=== PATIENT | male | born 1990 | race Two or more races ===

== ENCOUNTER 2018-12-15 02:13 | Observation (INO) | payer OTHER ==
[2018-12-15] VITALS (8 sets, daily range): BP systolic 110–131; BP diastolic 58–78
[~2018-12-15] VITALS: Ht 177.8 cm; Wt 83.2 kg
[2018-12-15] MEDS ORDERED: ONDANSETRON HCL INJ 2MG/ML 2ML 2 MG/ML VIAL IV STA (02:39)
[2018-12-15] MEDS ORDERED: SODIUM CHLORIDE 0.9% 1000ML 1,000 ML IV SCH (02:45)
[2018-12-15] MEDS ORDERED: IOPAMIDOL 370 MG/ML 50ML INFUS..BTL INJ ONE (03:30)
--- NOTE | 2018-12-15 03:54 | Diagnostic Imaging Report ---
EXAM: CT Abdomen and Pelvis WITH contrast INDICATION: Epigastric/periumbilical pain COMPARISON: None. TECHNIQUE: Abdomen and pelvis were scanned utilizing a multidetector helical scanner from the lung base to the pubic symphysis after administration of IV contrast. Coronal and sagittal reformations were obtained. Routine protocol was performed. Scan was performed when during portal venous phase. IV CONTRAST: 100 mL of Isovue-370 ORAL CONTRAST: Water COMPLICATIONS: None RADIATION DOSE: Total DLP: 595.8 mGy*cm Estimated effective dose: (DLP x 0.015 x size factor) mSv Dose modulation, iterative reconstruction, and/or weight based adjustment of the mA/kV was utilized to reduce the radiation dose to as low as reasonably achievable. FINDINGS: LINES and TUBES: None. LOWER THORAX: Unremarkable HEPATOBILIARY: No focal hepatic lesions. No biliary ductal dilation. GALLBLADDER: No radio-opaque stones or sludge. No wall thickening. SPLEEN: No splenomegaly. PANCREAS: No focal masses or ductal dilatation. ADRENALS: No adrenal nodules KIDNEYS/URETERS: Kidneys enhance symmetrically. No hydronephrosis. No cystic or solid mass lesions. No stones. GI TRACT: No abnormal distention or evidence of bowel obstruction. Appendix is fluid-filled and dilated to 1.1 cm in diameter with periappendiceal stranding and fluid. No abscess. PELVIC ORGANS/BLADDER: Unremarkable. LYMPH NODES: No lymphadenopathy. VESSELS: Unremarkable. PERITONEUM / RETROPERITONEUM: Small amount of free fluid in the right lower quadrant and pelvis. No free air. BONES: Unremarkable. SOFT TISSUES: Unremarkable. IMPRESSION: Acute uncomplicated appendicitis. Findings discussed with Arturo Renteria RN on 12/15/2018 at 0345 hrs. Signed by: DR. Dale Cantor MD on 12/15/2018 3:51 AM
[2018-12-15] MEDS ORDERED: PIPER-TAZ 3.375 GM 50 ML IV ONE (04:00)
[2018-12-15] MEDS ORDERED: ONDANSETRON HCL INJ 2MG/ML 2ML 2 MG/ML VIAL IV PRN ×2 (04:15→14:30)
--- OUTSIDE RECORDS SUMMARY | 2018-12-15 05:57 | XMS REPORT ---
Author Author [facility] Address Unknown Phone Unavailable Care Team Providers Care [employer] Officer Name Role Phone Supa AYALA Unavailable Unavailable Problems This patient has no known problems. Allergies, Adverse Reactions, Alerts This patient has no known allergies or adverse reactions. Medications This patient has no known medications. Results Test Description Test Time Test Comments Text Results Atomic Results Result Comments CT ABD/PEL WITH CONTRAST-HOPD 2018-12-15 03:35:00 [place] [id number] Patient Name: ZOILA REEDER MR #: [id number] : 1990 Age/Sex: 28/M Req #: [id number] Adm Physician: Ordered by: MONIKA AYALA MD Report #: [id number] Location: [facility] Room/Bed: Procedure: [id number] HOPD/CT ABD/PEL WITH CONTRAST-HOPD Exam Date: 12/15/18 Exam Time: 0315 REPORT STATUS: Signed EXAM: CT Abdomen and Pelvis WITH contrast INDICATION: Epigastric/periumbilical pain COMPARISON: None. TECHNIQUE: Abdomen and pelvis were scanned utilizing a multidetector helical scanner from the lung base to the pubic symphysis after administration of IV contrast. Coronal and sagittal reformations were obtained. Routine protocol was performed. Scan was performed when during portal venous phase. IV CONTRAST: 100 mL of Isovue-370 ORAL CONTRAST: Water COMPLICATIONS: None RADIATION DOSE: Total DLP: 595.8 mGy*cm Estimated effective dose: (DLP x 0.015 x size factor) mSv Dose modulation, iterative reconstruction, and/or weight based adjustment of the mA/kV was utilized to reduce the radiation dose to as low as reasonably achievable. FINDINGS: LINES and TUBES: None. LOWER THORAX: Unremarkable HEPATOBILIARY: No focal hepatic lesions. No biliary ductal dilation. GALLBLADDER: No radio-opaque stones or sludge. No wall thickening. SPLEEN: No splenomegaly. PANCREAS: No focal masses or ductal dilatation. ADRENALS: No adrenal nodules KIDNEYS/URETERS: Kidneys enhance symmetrically. No hydronephrosis. No cystic or solid mass lesions. No stones. GI TRACT: No abnormal distention or evidence of bowel obstruction. Appendix is fluid-filled and dilated to 1.1 cm in diameter with periappendiceal stranding and fluid. No abscess. PELVIC ORGANS/BLADDER: Unremarkable. LYMPH NODES: No lymphadenopathy. VESSELS: Unremarkable. PERITONEUM / RETROPERITONEUM: Small amount of free fluid in the right lower quadrant and pelvis. No free air. BONES: Unremarkable. SOFT TISSUES: Unremarkable. IMPRESSION: Acute uncomplicated appendicitis. Findings discussed with Arturo Renteria RN on 12/15/2018 at 0345 hrs. Signed by: DR. Dale Alcantar MD on 12/15/2018 3:51 AM Dictated By: DALE ALCANTAR MD 0 Transcribed By: LISA on 12/15/18350 COPY TO: MONIKA AYALA MD
[2018-12-15] MEDS ORDERED: SODIUM CHLORIDE 0.9% 1000ML 1,000 ML IV ONE (06:30)
--- NOTE | 2018-12-15 07:50 | NUR ---
recvd patient, primary language is Irish, states he understands Armenian well. pt aware of dx and possible surgery. currently having shower with cleanse. vs stable, will continue to monitor.
[2018-12-15 09:14] LABS: BASOPHILS % 0.3 % (0.0-1.0); EOSINOPHILS % 0.3 % (0.0-6.0); HEMATOCRIT 45.1 % (38.2-49.6); HEMOGLOBIN 15.7 g/dL (14.0-18.0); LYMPHOCYTES # (AUTO) 1.4 (1.0-3.2); LYMPHOCYTES % 16.1 % (18.0-39.1); MEAN CORPUSCULAR HGB CONC 34.8 g/dL (31-35); MEAN CORPUSCULAR VOLUME 83.2 fL (81-99); MONOCYTES # (AUTO) 0.9 (0.2-0.8); MONOCYTES % 9.8 % (4.4-11.3); NEUTROPHILS # (AUTO) 6.5 (2.1-6.9); NEUTROPHILS % 73.2 % (38.7-80.0); PLATELET COUNT 212 x10e3/uL (140-360); RED BLOOD COUNT 5.42 x10e6/uL (4.3-5.7)
[2018-12-15 09:34] LABS: ANION GAP 12.3 mmol/L (8-16); BLOOD UREA NITROGEN 11 mg/dL (7-26); BUN/CREATININE RATIO 10 (6-25); CALCIUM 9.2 mg/dL (8.4-10.2); CARBON DIOXIDE 26 mmol/L (22-29); CHLORIDE 104 mmol/L (98-107); CREATININE, SERUM 1.15 mg/dL (0.72-1.25); EST GLOMERULAR FILTRATION RATE > 60 ML/MIN (60-); GLUCOSE 95 mg/dL (74-118); MAGNESIUM 2.3 MG/DL (1.3-2.1); POTASSIUM 4.3 mmol/L (3.5-5.1); SODIUM 138 mmol/L (136-145)
[2018-12-15] MEDS: D5.45%NS/KCL 20MEQ 1,000 ML IV SCH ×2 (10:07→12:05)
[2018-12-15] MEDS ORDERED: PIPER-TAZ 3.375 GM / NS 50ML IV SCH (12:00)
--- NOTE | 2018-12-15 12:01 | NUR ---
per OR, dr lindo scheduling procedure for this afternoon.
--- NOTE | 2018-12-15 13:18 | NUR ---
PT IN STABLE CONDITION, LEFT FOR PROCEDURE
--- NOTE | 2018-12-15 13:34 | Consultation ---
DATE OF CONSULTATION: December 15, 2018 REFERRING PHYSICIAN: Dr. Pito Yap. The patient is a 28-year-old male who presents with complaints of abdominal pain, which started yesterday. The pain persisted unchanged. He was evaluated with CT abdomen and pelvis in a freestanding emergency room which revealed findings suggestive of acute appendicitis. Patient says the pain has persisted unchanged. PAST MEDICAL HISTORY: Unremarkable. He has no chronic medical problems. No previous surgery. CURRENT MEDICATIONS: None. ALLERGIES: NO KNOWN ALLERGIES. FAMILY HISTORY: Noncontributory. 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 He does not smoke cigarettes or drink alcohol. REVIEW OF SYSTEMS: As stated above, otherwise was negative. PHYSICAL EXAMINATION GENERAL: The patient is awake, alert, in no distress. VITAL SIGNS: Normal. HEENT: No scleral icterus. NECK: Supple. No masses. LUNGS: Equal breath sounds are clear bilaterally. CARDIAC: Regular rate and rhythm. No murmur. ABDOMEN: Tender in the right lower quadrant with localized signs of peritonitis in the right lower quadrant. There is no mass. EXTREMITIES: No edema. Pulses are palpable. NEUROLOGIC: Exam is intact. ASSESSMENT: This is a 28-year-old male with acute appendicitis. He will benefit from appendectomy, which I plan to schedule for today. Procedure was explained to the patient including risks, benefits and alternatives. He understands. He has had the opportunity to ask questions. He is aware of the possible need for open surgery. Thank you for asking see to see Mr. Ray. Job#: [id number]
[2018-12-15] MEDS ORDERED: BUPIVACAINE 0.5%/EPI 30 ML SDV INJ ONE (13:40)
--- NOTE | 2018-12-15 13:44 | NUR ---
SOCIAL WORK INITIAL ASSESSMENT Transmission Repairer to bedside to discuss plan of care with patient/family. CM/SW role and care transitions discussed. Anticipated discharge plan discussed along with duration of care. CM/SW discussed patients right to make decisions in care. CM/SW work hours given. 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 Name and number was also written on the patients whiteboard. Patient verbalized understanding of discussion. CM will follow-up with ongoing discharge and transition of care needs.
--- NOTE | 2018-12-15 13:47 | NUR ---
POST DISCHARGE STATUS FORM FILED IN CHART TO RETURN HOME WITH NO NEEDS
[2018-12-15] MEDS ORDERED: HYDROMORPHONE 1MG/1ML INJ IV PRN (14:30)
[2018-12-15] MEDS ORDERED: HYDROMORPHONE 2MG/ML 2 MG/ML ML IV PRN (14:30)
[2018-12-15] MEDS ORDERED: MEPERIDINE HCL INJ 25 MG/ML VIAL ONE (14:45)
--- NOTE | 2018-12-15 14:55 | Operative Report ---
DATE OF PROCEDURE: December 15, 2018 PREOPERATIVE DIAGNOSIS: Acute appendicitis. POSTOPERATIVE DIAGNOSIS: Acute appendicitis. PROCEDURES PERFORMED 1. Diagnostic laparoscopy. 2. Laparoscopic appendectomy. GOLD ASSAYER: None. ANESTHESIA: General. INDICATIONS AND FINDINGS: Patient is a 28-year-old male who presented with complaint of abdominal pain for 1 day localized to the right lower quadrant. At surgery, the patient was found to have an acutely inflamed appendix. TECHNIQUE: After adequate general endotracheal anesthesia, with the patient in the supine position, the abdomen was prepped and draped in a sterile fashion with ChloraPrep solution. Skin in the umbilicus was infiltrated with 0.5% Marcaine. Incision was made in the umbilicus. Abdominal wall was elevated, and a Veress needle was introduced. Pneumoperitoneum was then created. A 10-mm trocar and cannula were then passed through the umbilical wound. Laparoscopic camera was introduced. Initial laparoscopy revealed an acutely inflamed appendix. A 12-mm trocar and cannula were placed suprapubically, and a 5-mm trocar and cannula were placed in the right upper quadrant. These were placed under direct vision. Cecum was elevated. A window was created between the base of the appendix and the mesoappendix. The base of the appendix was divided close to the cecum with the Endo BERT stapler. Mesoappendix was also divided with Endo BERT stapler, freeing the appendix completely. A small amount of bleeding from the mesoappendix was controlled with a Hemoclip and hemostasis achieved. Appendix was placed into an Endo pouch and brought out through the suprapubic cannula. Care was taken that it did not touch the abdominal wall. The area of the appendectomy was inspected for hemostasis, which was seen to be adequate. It was irrigated with saline. All fluid aspirated and inspected for hemostasis, which was seen to be adequate. It was irrigated once again with saline. All fluid aspirated and inspected once again for hemostasis, which was seen to be adequate. Instruments and cannulas were removed. Pneumoperitoneum was evacuated. Wounds were then closed. Fascia in the umbilical and suprapubic wounds closed with #0 Vicryl. Skin to all wounds closed with anne-marie. Sterile dressings applied to each wound. Patient tolerated the procedure well. Estimated blood loss was 10 mL. There were no complications. All counts were correct. Patient was taken to the recovery room in satisfactory condition. Job#: [id number] MH
[2018-12-15] MEDS: DEXTROSE 5%/0.45% SOD CHL 1,000 ML IV SCH (15:41)
[2018-12-15] MEDS ORDERED: FENTANYL CITRATE/PF 100MCG/2 ML INJ ONE (17:51)
[2018-12-15] MEDS ORDERED: MIDAZOLAM HCL 2 MG/2 ML VIAL ONE (17:51)
[2018-12-15] MEDS ORDERED: NEOSTIGMINE 5 MG/5ML SYR ONE (18:02)
[2018-12-15] MEDS ORDERED: SEVOFLURANE INHAL SOLN 250 ML PEN BTL ONE (18:02)
[2018-12-15] MEDS ORDERED: ROCURONIUM BROMIDE 10 MG/ML 5ML VIAL ONE (18:02)
[2018-12-15] MEDS ORDERED: GLYCOPYRROLATE INJ 1MG/ 5 ML SYR ONE (18:02)
[2018-12-15] MEDS ORDERED: PROPOFOL IV EMULSION 10 MG/ML 20 ML VIAL ONE (18:02)
[2018-12-15] MEDS ORDERED: ONDANSETRON HCL INJ 2MG/ML 2ML 2 MG/ML VIAL ONE (18:02)
[2018-12-15] MEDS ORDERED: LIDOCAINE HCL 2% LOCAL INJ 5 ML SDV VIAL INJ ONE (18:02)
[2018-12-15] MEDS ORDERED: DEXAMETHASONE SOD PHOS INJ 4 MG/ML VIAL ONE (18:02)
[2018-12-15] MEDS ORDERED: KETOROLAC TROMETHAMINE 30 MG/ML VIAL ONE (18:02)
[2018-12-15] MEDS: PIPER-TAZ 3.375 GM 50 ML IV SCH (20:25)
[2018-12-16] MEDS: DEXTROSE 5%/0.45% SOD CHL 1,000 ML IV SCH ×2 (00:36→12:04)
[2018-12-16] MEDS: HYDROCODONE/APAP 5MG-325MG TAB PO PRN ×3 (01:39→12:03)
[2018-12-16] MEDS: PIPER-TAZ 3.375 GM 50 ML IV SCH ×2 (04:14→12:04)
[2018-12-16 05:39] VITALS: BP 104/51
[2018-12-16] MEDS ORDERED: ZOFRAN4 MG PO (06:49)
[2018-12-16] MEDS ORDERED: COLACE100 MG PO (06:49)
[2018-12-16] MEDS ORDERED: CIPRO500 MG PO (06:49)
[2018-12-16] MEDS ORDERED: TYLENOL WITH C1 EACH PO (06:49)
--- NOTE | 2018-12-16 08:01 | NUR ---
History and Physical cc: abdominal pain HPI: 28yoM, from 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 Severe pain, taken to ED, found to have acute Appendicitis. Admitted with fluids and Iv antibiotics, underwent Lap appendectomy, now recovering; Not yet passing flatus, but able to tolerate diet. 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 affect; labs/med; re/vd A/P:28yoM Acute appendicitis Abdominal pain Dehydration Overweight BMI 26.3 PLAN s/p lap appy rehydrate iv abx pain control bowel regimen SCD and pepcid d/.c planning; Pito Yap MD, PhD.
[2018-12-16 08:43] VITALS: BP 130/61
[2018-12-16 08:52] VITALS: BP 130/61
[2018-12-16] MEDS ORDERED: FAMOTIDINE 20 MG TAB PO SCH (09:00)
[2018-12-16 12:33] VITALS: BP 114/64
[2018-12-16 16:30] VITALS: BP 119/61
== END 2018-12-16 17:23 | disposition home or self-care (01) ==
LOC: FSED 02:13 → INTOOBSV 04:05 → ERHOLD 04:05 → IMCU 08:08
PROVIDERS: ADMIT Internal Medicine; ATTEND Internal Medicine
DX: K35.33 Acute appendicitis with perforation, localized peritonitis, and gangrene, with abscess (principal)
CPT/HCPCS: 36415; 74177; 80048; 80053; 81003; 83735; 85025; 88304; 99284; G0378; J1100; J1885; J2001; J2175; J2250; J2405; J2543; Q9967